=== PATIENT | female | born 1965 | race Caucasian/White ===

== ENCOUNTER → 2021-12-22 14:54 | Outpatient (BNVA) | payer OTHER, SELFPAY | PROVIDERS: Visit Provider Student in an Organized Health Care Education/Training Program | DX: S82.831A Other fracture of upper and lower end of right fibula, initial encounter for closed fracture (principal); X50.9XXA Other and unspecified overexertion or strenuous movements or postures, initial encounter | CPT/HCPCS: 73610 ==

== ENCOUNTER 2021-12-28 10:12 | Day surgery (SDC) | payer SELFPAY ==
[2021-12-27 09:15] VITALS: BMI 32.9
[2021-12-28] VITALS (14 sets, daily range): BP systolic 105–157; BP diastolic 67–91; PULSE 55–61; RESP 6–188; TEMP 36.1–36.7; O2SAT 92–99
--- NOTE | 2021-12-28 | SCC_ITS ---
Procedure Done: Right distal fibula open reduction internal fixation 33 seconds of fluoroscopic guidance, for a cumulative dose of 0.75 mGy, was provided to Dr. Damon by the radiology department. C-arm images of the RIGHT ankle were saved for the patient's permanent record. MANA
[2021-12-28] MEDS: sodium chloride 0.9% 1,000 ML 30 ML IV (10:44)
[2021-12-28] MEDS: acetaminophen 1,000 MG/100 ML PIGGYBACK 400 MG IV (10:44)
[2021-12-28] MEDS: ketorolac 30 mg/mL INJ IVP (10:44)
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
[2021-12-28] MEDS: diphenhydrAMINE 50 mg/mL SDV 1mL 12.5 MG IVP (11:28)
[2021-12-28] MEDS: magnesium sulfate premix 2 GM/50 ML PIGGYBACK IV (11:30)
[2021-12-28] MEDS: scopolamine 1.5 Patch 1 PATCH TRANSDERMA (11:36)
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
--- NOTE | 2021-12-28 12:40 | PM.PACU ---
PACU note Narrative: Patient recovering in PACU in stable condition. Toes warm well perfused right lower extremity. Splint on and in place and clean dry and intact. Patient able to wiggle toes. Sensation tact light touch to the toes. Splint limits full examination. Exam: awake (See narrative for detailed exam) Disposition: discharged
--- NOTE | 2021-12-28 12:44 | P.OP_ITS ---
Brief Operative Note Date of procedure: 12/28/21 Pre-op diagnosis: Right distal fibula fracture Post-op diagnosis: same Procedure Done: Right distal fibula open reduction internal fixation Surgeon: Steve Damon Estimated blood loss (mL): 10 Complications: None Post-op Plan: Patient to recover in PACU. Receive appropriate discharge instructions as well as pain medication and DVT prophylaxis. Nonweightbearing right lower extremity. Maintain splint until follow-up. See me in office in 2 weeks. Condition: stable Disposition: same day Coding Level of Care Code Acute Engineering Project Manager for Christy Clancy
[2021-12-28] MEDS: fentaNYL 50 mcg/mL INJ 2mL IVP (13:16)
[2021-12-28] MEDS: HYDROcodone-acetaminophen 5-325 mg Tablet 1 TAB PO (13:55)
--- NOTE | 2021-12-28 14:07 | ANE.PACU2 ---
Inpatient post-anesthesia follow up: Airway intact: Yes Vital signs: Temperature 97.0 F Pulse Rate 59 Respiratory Rate 18 Blood Pressure 116/69 Pulse Oximetry 96 Oxygen Delivery Me thod Room Air Oxygen Flow Rate 2 Fraction of Inspir ed Oxygen Hydration adequate: Yes Nausea and vomiting: No Pain level: 3 Mental status: Baseline
--- NOTE | 2021-12-29 07:29 | PM.OP2 ---
Brief Operative Note Date of procedure: 12/29/21 Pre-op diagnosis: Right distal fibula fracture Post-op diagnosis: same Procedure Done: Right distal fibula open reduction internal fixation Surgeon: Steve Damon Estimated blood loss (mL): 15 Complications: None Post-op Plan: Patient recover in PACU. Patient will receive appropriate discharge instructions as well as DVT prophylaxis and pain medication. To be nonweightbearing to the right lower extremity. Maintain splint until follow-up. See me in office in 2 weeks. If any questions feel free to contact the office. Condition: stable Disposition: same day Coding Level of Care Code Acute Insole And Outsole Splitter for Christy Clancy
== END 2021-12-28 14:57 | disposition home or self-care (01) ==
PROVIDERS: Visit Provider Student in an Organized Health Care Education/Training Program
PROC: 0QSK04Z Reposition Left Fibula with Internal Fixation Device, Open Approach (ICD-10-PCS; CPT 27828; principal; 2021-12-28 11:05)
DX: S82.831A Other fracture of upper and lower end of right fibula, initial encounter for closed fracture (principal); X50.0XXA Overexertion from strenuous movement or load, initial encounter
CPT/HCPCS: 27792; 76000; C1713; J1100; J1200; J1885; J2250; J2405; J2704; J3010; J3475; J3490; J7030

== ENCOUNTER → 2022-01-13 09:08 | Outpatient (BNVA) | payer SELFPAY | PROVIDERS: Visit Provider Student in an Organized Health Care Education/Training Program | DX: S82.831A Other fracture of upper and lower end of right fibula, initial encounter for closed fracture (principal); X58.XXXA Exposure to other specified factors, initial encounter | CPT/HCPCS: 73610; 99024 ==

== ENCOUNTER 2022-01-13 10:47 | Outpatient (CLI) | payer SELFPAY | END 2022-01-13 10:48 | disposition home or self-care (01) | LOC: SPT 10:48 | PROVIDERS: Visit Provider Student in an Organized Health Care Education/Training Program | DX: Z46.89 Encounter for fitting and adjustment of other specified devices (principal); S82.831S Other fracture of upper and lower end of right fibula, sequela; X58.XXXS Exposure to other specified factors, sequela | CPT/HCPCS: 97760; L4361 ==

== ENCOUNTER 2022-01-24 06:00 | Outpatient (RCR) | payer SELFPAY | END 2022-02-13 23:59 | disposition home or self-care (01) | LOC: WPT 06:00 | PROVIDERS: Visit Provider Student in an Organized Health Care Education/Training Program | DX: S82.402D Unspecified fracture of shaft of left fibula, subsequent encounter for closed fracture with routine healing (principal); X58.XXXD Exposure to other specified factors, subsequent encounter | CPT/HCPCS: 97110; 97161; 97530 ==

== ENCOUNTER → 2022-02-10 08:44 | Outpatient (BNVA) | payer MEDICAID, SELFPAY | PROVIDERS: Visit Provider Student in an Organized Health Care Education/Training Program | DX: S82.831A Other fracture of upper and lower end of right fibula, initial encounter for closed fracture (principal); X58.XXXA Exposure to other specified factors, initial encounter | CPT/HCPCS: 73610 ==

== ENCOUNTER 2022-02-10 09:19 | Outpatient (CLI) | payer MEDICAID, SELFPAY | END 2022-02-10 09:20 | disposition home or self-care (01) | LOC: SPT 09:24 | PROVIDERS: Visit Provider Student in an Organized Health Care Education/Training Program | DX: Z46.89 Encounter for fitting and adjustment of other specified devices (principal); S82.831S Other fracture of upper and lower end of right fibula, sequela; X58.XXXS Exposure to other specified factors, sequela | CPT/HCPCS: 97760; L1902 ==

== ENCOUNTER 2022-02-14 06:00 | Outpatient (RCR) | payer MEDICAID, SELFPAY | END 2022-03-15 23:59 | disposition home or self-care (01) | LOC: WPT 06:00 | PROVIDERS: Visit Provider Student in an Organized Health Care Education/Training Program | DX: Z47.89 Encounter for other orthopedic aftercare (principal) | CPT/HCPCS: 97110; 97530 ==